=== PATIENT | female | born 2005 | race African-American/Black ===

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

== ENCOUNTER 2025-05-10 10:59 | Emergency (ER) | payer MEDICAID ==
[~2025-05-10] VITALS: Ht 154.9 cm; Wt 58.9 kg
[2025-05-10 11:04] VITALS: O2SAT 99
[2025-05-10 11:14] VITALS: BP 105/62; PULSE 92; TEMP 36.7; O2SAT 99
[2025-05-10] MEDS ORDERED: IBUP-2029 MT (12:40)
[2025-05-10 13:03] VITALS: RESP 16
[2025-05-10] MEDS: IBUPROFEN 600MG TABLET PO ONE (13:03)
== END 2025-05-10 13:12 | disposition home or self-care (01) ==
LOC: ER 11:21
DX: M25.572 Pain in left ankle and joints of left foot (principal); M25.472 Effusion, left ankle; Z79.899 Other long term (current) drug therapy
CPT/HCPCS: 99283; 29515; 81025; 73600; A6449